=== PATIENT | male | born 1995 | race Caucasian/White ===

== ENCOUNTER 2017-12-14 15:51 | Emergency (ER) | payer BC | END 2017-12-14 17:27 | disposition home or self-care (01) | LOC: M ED 15:51 | DX: S09.90XA Unspecified injury of head, initial encounter (principal); W17.89XA Other fall from one level to another, initial encounter; Y93.51 Activity, roller skating (inline) and skateboarding; T14.8XXA Other injury of unspecified body region, initial encounter | CPT/HCPCS: 70450 ==

== ENCOUNTER → 2019-09-20 | Outpatient (CLI) | payer BC ==
[~2019-09-20] MED LIST: FLON1SPR NARES
--- NOTE | 2019-09-20 14:53 | REP ---
LEFT RIB SERIES: Five views of left ribs performed. No fracture or bone lesion is seen. An accompanying view of the chest demonstrates a small left pleural effusion. No infiltrate is seen. The heart and mediastinum are unremarkable. IMPRESSION: Small left pleural effusion. No evidence of left rib abnormality. Electronically Signed by Rocky Kolb MD 09/20/2019 03:24 P
== END ==
LOC: M WUC 13:37
PROVIDERS: ATTEND Physician Assistant

== ENCOUNTER → 2019-10-14 | Outpatient (CLI) | payer BC ==
[~2019-10-14] MED LIST changes: +ALBU8.5H; +IBUP-1022 PO
--- NOTE | 2019-10-14 23:58 | REP ---
CHEST, TWO VIEWS: Two views of the chest are performed. There is a small left pleural effusion. There is left basilar infiltrate. Right lung is clear. Heart is normal in size. Mediastinal silhouette is unremarkable. Visualized osseous structures appear intact. IMPRESSION: Small left effusion. Left basilar infiltrate. Electronically Signed by Rocky Kolb MD 10/15/2019 09:19 A
== END ==
LOC: M ADAMS 10:40
PROVIDERS: ATTEND Physician Assistant
DX: Z20.9 Contact with and (suspected) exposure to unspecified communicable disease (principal); R91.8 Other nonspecific abnormal finding of lung field; R07.89 Other chest pain
CPT/HCPCS: 71046; U0003

== ENCOUNTER 2019-10-17 14:29 | Emergency (ER) | payer BC ==
[~2019-10-17] VITALS: Ht 185.4 cm; Wt 92.5 kg
[~2019-10-17 14:29] MED LIST changes: -ALBU8.5H; -IBUP-1022 PO
[2019-10-17] MEDS ORDERED: ALBU8.5H (14:45)
--- NOTE | 2019-10-17 15:42 | REP ---
Clinical: Shortness of breath. Technique: PA and lateral. Comparison: 10/14/2019, 01/31/2010. Findings: Left lower lobe infiltrate and small pleural effusion are again noted and similar to prior examination. Remainder of lung márquez are well-aerated and clear. Mediastinum and cardiac silhouette are normal. Skeletal structures are intact. Impression: Small left lower lobe consolidation and pleural effusion similar to 10/14/2019 . Electronically Signed by Martin Mcdonald MD 10/17/2019 03:33 P
[2019-10-17 16:04] LABS: BASO # 0.1 10^3/uL (0.0-0.2); BASO % 0.9 % (0.0-1.0); EOS # 0.6 10^3/uL (0.0-0.5); HEMATOCRIT 45.1 % (42.0-52.0); HEMOGLOBIN 14.9 g/dl (13.5-17.5); LYMPH # 1.4 10^3/uL (1.5-5.0); LYMPH % 24.8 % (24.0-44.0); MEAN CORPUSCULAR HEMOGLOBIN 27.8 pg (27.0-33.0); MEAN CORPUSCULAR VOLUME 84.1 fl (80.0-96.0); MONO # 0.4 10^3/uL (0.0-0.8); MONO % 7.2 % (0.0-5.0); NEUTROPHILS % 55.9 % (36.0-66.0); PLATELET COUNT, AUTOMATED 366 10^3/uL (150-450); RED BLOOD COUNT 5.36 10^6/uL (4.30-6.10); WHITE BLOOD COUNT 5.4 10^3/uL (4.0-10.0)
[2019-10-17 16:08] LABS: BLOOD UREA NITROGEN 12 MG/DL (7-18); CALCIUM LEVEL 8.9 MG/DL (8.5-10.1); CARBON DIOXIDE LEVEL 29 MEQ/L (21-32); CHLORIDE LEVEL 104 MEQ/L (98-107); GLOMERULAR FILTRATION RATE > 60.0 (>60); GLUCOSE, FASTING 103 MG/DL (70-100); POTASSIUM SERUM 4.2 MEQ/L (3.5-5.1); SODIUM LEVEL 138 MEQ/L (136-145)
[2019-10-17] MEDS ORDERED: ISOVUE-370 76% 100ML VIAL As Ordered ONE (16:39)
--- NOTE | 2019-10-17 17:12 | REPVR ---
PROCEDURE INFORMATION: Exam: CT Angiography Chest With Contrast Exam date and time: 10/17/2019 4:36 PM Age: 23 years old Clinical indication: Abnormal findings; Other: D-dimer>4000; Shortness of breath; Additional info: SOB; Elevated dimer >4000 TECHNIQUE: Imaging protocol: Computed tomographic angiography of the chest with intravenous contrast. 3D rendering: MIP and/or 3D reconstructed images were created by the technologist. Radiation optimization: All CT scans at this facility use at least one of these dose optimization techniques: automated exposure control; mA and/or kV adjustment per patient size (includes targeted exams where dose is matched to clinical indication); or iterative reconstruction. Contrast material: ISOVUE 370; Contrast volume: 75 ml; Contrast route: INTRAVENOUS (IV); COMPARISON: CR Chest, 2 view PA, Lat 10/17/2019 3:19 PM FINDINGS: Pulmonary arteries: Normal. No pulmonary emboli. Aorta: Unremarkable. No aortic aneurysm. No aortic dissection. Lungs: Unremarkable. No consolidation. No masses. Pleural space: Small left pleural effusion. Heart: Unremarkable. No cardiomegaly. No pericardial effusion. Lymph nodes: Unremarkable. No enlarged lymph nodes. Bones/joints: Unremarkable. No acute fracture. Soft tissues: Unremarkable. IMPRESSION: 1. Small left pleural effusion. 2. No pulmonary emboli. 3. No acute pulmonary infiltrates. 4. No dissection. Electronically signed by: Ganesh Latham On 10/17/2019 17:12:09 PM
[2019-10-17] MEDS ORDERED: IBUP-1022 PO (17:23)
[2019-10-17 17:57] VITALS: BP 124/68
== END 2019-10-17 17:58 | disposition home or self-care (01) ==
LOC: M ED 14:29
DX: R09.1 Pleurisy (principal); J90 Pleural effusion, not elsewhere classified; Z87.01 Personal history of pneumonia (recurrent)
CPT/HCPCS: 71046; 71275; 80048; 85025; 85379; 99284; Q9967

== ENCOUNTER → 2019-12-18 | Outpatient (CLI) | payer BC ==
[~2019-12-18] MED LIST changes: +ALBU8.5H; +IBUP-1022 PO
--- NOTE | 2020-01-18 10:04 | REP ---
NONCONTRAST CHEST CT CLINICAL: Abnormal findings on prior chest x-ray and CT. TECHNIQUE: Axial noncontrast images from the thoracic inlet to the upper abdomen with coronal and sagittal reformations. COMPARISON: 10/17/2019. FINDINGS: A small left pleural effusion is identified, which appears slightly decreased in size from prior examination. Very minimal lingular fibroatelectatic changes are also noted and essentially stable. The remainder of the bilateral lung márquez are clear and well-aerated. No further consolidation, obvious nodule, or mass lesion appreciated. Tracheobronchial tree is patent. No obvious adenopathy noted. The mediastinum demonstrates normal thoracic aorta, pulmonary vasculature, and heart/pericardium. Small amount of normal residual thymic tissue noted. Surrounding musculoskeletal structures are intact. IMPRESSION: * Small left pleural effusion minimally decreased from prior examination. * No acute mediastinal or pleural parenchymal otherwise appreciated. MTDD
== END ==
LOC: M RAD 13:52
PROVIDERS: ATTEND Internal Medicine Pulmonary Disease
DX: J90 Pleural effusion, not elsewhere classified (principal); J84.10 Pulmonary fibrosis, unspecified

== ENCOUNTER → 2019-12-24 | Outpatient (CLI) | payer BC ==
[2019-12-29 16:12] LABS: ANCA-ATYPICAL <1:20 titer (Neg:<1:20); ANTI DOUBLE STRAND-DNA AB <1 IU/mL (0-9); ANTI DS-DNA AB Negative (Negative); ANTINUCLEAR ANTIBODIES DIRECT Positive (Negative); CYTOPLASMIC NEUTROP AB ANCA-C <1:20 titer (Neg:<1:20); PERINUCLEAR AB ANCA-P <1:20 titer (Neg:<1:20); RNP ANTIBODIES <0.2 AI (0.0-0.9); SJOGREN'S ANTI SS-A >8.0 AI (0.0-0.9); SJOGREN'S ANTI SS-B >8.0 AI (0.0-0.9); SMITH ANTIBODIES 0.4 AI (0.0-0.9)
== END ==
LOC: M PLALAB 15:02
PROVIDERS: ATTEND Internal Medicine Pulmonary Disease
DX: R09.1 Pleurisy (principal)

== ENCOUNTER → 2021-04-18 | Outpatient (REF) | payer BC ==
[2021-04-18 18:10] LABS: BASO % 0.4 % (0.0-1.0); EOS # 0.1 10^3/uL (0.0-0.5); EOS % 1.6 % (0.0-3.0); HEMATOCRIT 42.8 % (42.0-52.0); HEMOGLOBIN 14.3 g/dl (13.5-17.5); LYMPH # 1.3 10^3/uL (1.5-5.0); LYMPH % 26.2 % (24.0-44.0); MEAN CORPUSCULAR HEMOGLOBIN 28.6 pg (27.0-33.0); MEAN CORPUSCULAR HGB CONC 33.4 g/dl (32.0-36.5); MEAN CORPUSCULAR VOLUME 85.6 fl (80.0-96.0); MONO # 0.5 10^3/uL (0.0-0.8); MONO % 10.4 % (2.0-8.0); NEUTROPHILS # 3.1 10^3/uL (1.5-8.5); NEUTROPHILS % 61.2 % (36.0-66.0); PLATELET COUNT, AUTOMATED 247 10^3/uL (150-450); WHITE BLOOD COUNT 5.1 10^3/uL (4.0-10.0)
[2021-04-18 18:32] LABS: ALBUMIN 4.5 GM/DL (3.2-5.2); ALT/SGPT 54 U/L (12-78); BILIRUBIN,TOTAL 0.4 MG/DL (0.2-1.0); BLOOD UREA NITROGEN 15 MG/DL (7-18); CALCIUM LEVEL 9.4 MG/DL (8.5-10.1); CARBON DIOXIDE LEVEL 30 MEQ/L (21-32); CHLORIDE LEVEL 105 MEQ/L (98-107); GLOMERULAR FILTRATION RATE > 60.0 (>60); GLUCOSE, FASTING 84 MG/DL (70-100); POTASSIUM SERUM 4.2 MEQ/L (3.5-5.1); SODIUM LEVEL 138 MEQ/L (136-145); TOTAL PROTEIN 8.4 GM/DL (6.4-8.2)
== END ==
LOC: M LABDRWAD 17:51
PROVIDERS: ATTEND Internal Medicine
DX: Z79.899 Other long term (current) drug therapy (principal)

== ENCOUNTER → 2021-05-08 | Outpatient (CLI) | payer BC | LOC: M ADAMS 14:30 | PROVIDERS: ATTEND Family Medicine | DX: Z87.09 Personal history of other diseases of the respiratory system (principal) ==

== ENCOUNTER → 2021-06-02 | Outpatient (REF) | payer BC ==
[2021-06-02 16:48] LABS: BASO % 0.7 % (0.0-1.0); EOS # 0.1 10^3/uL (0.0-0.5); EOS % 1.7 % (0.0-3.0); HEMOGLOBIN 14.4 g/dl (13.5-17.5); LYMPH # 1.6 10^3/uL (1.5-5.0); LYMPH % 28.1 % (24.0-44.0); MEAN CORPUSCULAR HGB CONC 33.5 g/dl (32.0-36.5); MEAN CORPUSCULAR VOLUME 86.7 fl (80.0-96.0); MONO # 0.5 10^3/uL (0.0-0.8); NEUTROPHILS # 3.5 10^3/uL (1.5-8.5); NEUTROPHILS % 61.3 % (36.0-66.0); PLATELET COUNT, AUTOMATED 266 10^3/uL (150-450); RED BLOOD COUNT 4.96 10^6/uL (4.30-6.10); WHITE BLOOD COUNT 5.8 10^3/uL (4.0-10.0)
[2021-06-02 17:31] LABS: ALBUMIN 4.2 GM/DL (3.2-5.2); ALT/SGPT 52 U/L (12-78); BILIRUBIN,TOTAL 0.4 MG/DL (0.2-1.0); BLOOD UREA NITROGEN 13 MG/DL (7-18); CARBON DIOXIDE LEVEL 27 MEQ/L (21-32); CHLORIDE LEVEL 108 MEQ/L (98-107); CREATININE FOR GFR 0.87 MG/DL (0.70-1.30); GLOMERULAR FILTRATION RATE > 60.0 (>60); GLUCOSE, FASTING 95 MG/DL (70-100); SODIUM LEVEL 141 MEQ/L (136-145); TOTAL PROTEIN 7.7 GM/DL (6.4-8.2)
== END ==
LOC: M LABDRWAD 16:18
PROVIDERS: ATTEND Internal Medicine
DX: Z51.81 Encounter for therapeutic drug level monitoring (principal); Z79.899 Other long term (current) drug therapy

== ENCOUNTER → 2021-06-28 | Outpatient (CLI) | payer BC ==
[~2021-06-28] MED LIST changes: +ISOVUE-370 76% 100ML VIAL As Ordered ONE
== END ==
LOC: M RAD 17:17
PROVIDERS: ATTEND Family Medicine
DX: R07.89 Other chest pain (principal)
CPT/HCPCS: 71260; Q9967

== ENCOUNTER → 2021-10-04 | Outpatient (CLI) | payer BC ==
[~2021-10-04] MED LIST changes: +HYDR200T3 PO; -ISOVUE-370 76% 100ML VIAL As Ordered ONE; +OMEP40CA5 PO
== END ==
LOC: M LABSMTC 10:03
PROVIDERS: ATTEND Anesthesiology
DX: Z01.818 Encounter for other preprocedural examination (principal); Z11.52 Encounter for screening for COVID-19

== ENCOUNTER 2021-10-09 12:53 | Day surgery (SDC) | payer BC ==
[~2021-10-09] VITALS: Ht 188 cm; Wt 95.6 kg
[~2021-10-09 12:53] MED LIST changes: +NS 1,000 ML IV ONE
[2021-10-09] MEDS ORDERED: fentaNYL 100 MCG/2 ML INJECTION As Ordered ONE (14:01)
[2021-10-09 14:35] VITALS: BP 127/76
== END 2021-10-09 14:35 | disposition home or self-care (01) ==
LOC: M OPP 12:53
PROVIDERS: ATTEND Internal Medicine Gastroenterology
DX: K22.89 Other specified disease of esophagus (principal); K44.9 Diaphragmatic hernia without obstruction or gangrene; R07.89 Other chest pain; Z79.02 Long term (current) use of antithrombotics/antiplatelets; Z79.899 Other long term (current) drug therapy
CPT/HCPCS: 43239; 88305; J3010

== ENCOUNTER → 2025-02-26 | Outpatient (CLI) | payer OTHER ==
[~2025-02-26] MED LIST changes: -HYDR200T3 PO; +HYDR200T46 PO; -IBUP-1022 PO; +IBUP600T42 PO; -NS 1,000 ML IV ONE
== END ==
LOC: M RAD 12:28
PROVIDERS: ATTEND Physician Assistant Medical
DX: I83.891 Varicose veins of right lower extremity with other complications (principal); I83.013 Varicose veins of right lower extremity with ulcer of ankle

== ENCOUNTER → 2025-03-03 | Outpatient (POV) | payer OTHER ==
[~2025-03-03] VITALS: Ht 188 cm; Wt 104.8 kg
[2025-03-03 13:05] VITALS: BP 136/83; O2SAT 97
== END ==
LOC: M IRPOV 12:26
PROVIDERS: ATTEND Registered Nurse School
DX: I87.2 Venous insufficiency (chronic) (peripheral) (principal); I83.018 Varicose veins of right lower extremity with ulcer other part of lower leg; I87.8 Other specified disorders of veins; R60.0 Localized edema; L81.9 Disorder of pigmentation, unspecified; M32.9 Systemic lupus erythematosus, unspecified; M35.00 Sjogren syndrome, unspecified